=== PATIENT | female | born 1960 | race Caucasian/White ===

== ENCOUNTER → 2016-06-29 | Outpatient (CLI) | payer OTHER ==
[~2016-06-29] MED LIST: ALPRAZOLAM0.5 MG PO; COLACE PO; HYDROCHLOROTHIA25 MG PO; PERCOCET 7.5-31 EACH PO; PRILOSEC PO; VICODIN ES 7.51 EAC1 PO; XARELTO10 MG PO; ZOFRAN PO
--- NOTE | ~2016-06-29 | EKG ---
PATIENT: JOSE GUADALUPE ULLOA UNIT #: [id number] Ventricular Rate: 56 BPM Atrial Rate: 56 BPM P-R Interval: 162 ms QRS Duration: 94 ms Q-T Interval: 448 ms QTC Calculation(Bezet): 432 ms P [place]: 15 degrees Calculated R [place]: 7 degrees Calculated T [place]: 19 degrees Diagnosis Line: Sinus bradycardia Diagnosis Line: Otherwise normal ECG Diagnosis Line: No previous ECGs available Diagnosis Line: Confirmed by LYNDSAY NASCIMENTO MD ([id number]) on 06/30/2016 Diagnosis Line: 6:11:01 AM INTERPRETING MD: PILY COLLINS
[2016-06-29 12:57] LABS: CALCIUM SERUM 9.7 mg/dL (8.4-10.2); CREATININE SERUM 0.8 mg/dL (0.6-1.4); GLOM FILT RATE Estimated 82.5 mL/min (>60); POTASSIUM 4.3 mmol/L (3.5-5.1)
== END | disposition home or self-care (01) ==
LOC: CAMB 10:33
PROVIDERS: Orthopaedic Surgery
DX: Z01.818 Encounter for other preprocedural examination (principal); S86.811A Strain of other muscle(s) and tendon(s) at lower leg level, right leg, initial encounter; M20.11 Hallux valgus (acquired), right foot
CPT/HCPCS: 36415; 80048; 93005

== ENCOUNTER 2016-07-11 05:14 | Inpatient (IN) | payer OTHER ==
--- NOTE | ~2016-07-11 | DS ---
Unit #: [id number] #: [id number] Patient: JOSE GUADALUPE ULLOA [id number] [address] [place], [place] [address] [id number] I MR#: [id number] NAME: JOSE GUADALUPE ULLOA ROOM: 452 Age: 56 Sex: F Admission Date: 07/11/2016 : 1960 Discharge Date: 07/13/2016 Attending Physician: Megan Carbajal M.D. Referring Physician: Megan Carbajal M.D. Primary Care Physician: Generic Doctor Not In System DISCHARGE SUMMARY CHIEF COMPLAINT Right foot pain and deformity. HISTORY OF PRESENT ILLNESS The patient is a 56-year-old female with stage-3 right posterior tibial tendon dysfunction with associated painful flat-foot. She also has a severe right hallux valgus associated with hypermobility of the first ray. She has extensive metatarsus adductus. The patient is, therefore, to undergo right foot triple arthrodesis and a Lapidus bunionectomy. She has failed conservative care. HOSPITAL COURSE The patient was taken to the operating room on the date of admission where she underwent right foot triple arthrodesis, proximal tibial bone graft, Lapidus bunionectomy. The patient had a stable postoperative course and remained afebrile with stable vital signs. She was seen by Physical Therapy on a daily basis and instructed on how to remain non-weightbearing on her affected site. Pain was controlled with Percocet and morphine FRATERNITY ADVISER. She was ready for discharge on the 2nd postoperative day. FINAL DIAGNOSIS Stage-3 right posterior tibial tendon dysfunction and severe hallux valgus. DISPOSITION AND RECOMMENDATIONS 1. The patient is discharged home. She will keep the dressing clean, dry and intact. She will continue ice and elevation. She will be strictly non-weightbearing for 3 months. 2. Discharge medications remain the same as her home medications with the addition of Xarelto 10 mg p.o. daily for a total of 2 weeks, and Percocet 7.5/325 one or two p.o. q.6 hours p.r.n. pain, dispense 50. 3. Follow up in my office in 10-14 days for dressing change, stitch removal, application of a cast. Dictated by.Liberty Carbajal M.D. [facility]/jules TD: 07/13/2016 23:06 JOB #: [id number] Unit #: [id number] #: [id number] Patient: JOSE GUADALUPE ULLOA Bernard DISCHARGE SUMMARY Page 1 of 1 X Michelle Carbajal MD X DISCHARGE SUMMARY
--- NOTE | ~2016-07-11 | HP ---
Unit #: [id number] #: [id number] Patient: JOSE GUADALUPE ULLOA [id number] [facility]. [place], [place] [address] [id number] O MR#: [id number] NAME: JOSE GUADALUPE ULLOA ROOM: Age: Sex: F Admission Date: 07/11/2016 : 1960 Attending Physician: Megan Carbajal M.D. Referring Physician: Megan Carbajal M.D. Primary Care Physician: Generic Doctor Not In System HISTORY AND PHYSICAL CHIEF COMPLAINT Right foot pain and deformity. HISTORY OF PRESENT ILLNESS The patient is a 56-year-old female with worsening right flatfoot deformity secondary to stage III posterior tibial tendon dysfunction with equinus deformity. She also has severe right hallux valgus associated with hypermobility of the first ray. She has failed conservative care with the use of an Berenice brace and has pain with activities of daily living. She is therefore to undergo surgical correction. PAST MEDICAL HISTORY Past medical history is remarkable for gastroesophageal reflux disease, osteoporosis, arthritis and allergic rhinitis. HOME MEDICATIONS Xanax, hydrochlorothiazide and hydrocodone. ALLERGIES None. PAST SURGICAL HISTORY Cholecystectomy, hysterectomy, inguinal hernia repair, shoulder surgery. SOCIAL HISTORY The patient is a smoker. She denies alcohol use. FAMILY HISTORY Family history is remarkable for diabetes and arthritis. REVIEW OF SYSTEMS Review of systems is unremarkable. PHYSICAL EXAMINATION GENERAL: In general this is a well-developed, well-nourished female in no acute distress. HEENT: The pharynx is clear. NECK: The neck is supple, without masses. HEART: Exam reveals a regular sinus rhythm without murmurs or gallops. LUNGS: The lungs are clear. ABDOMEN: The abdomen is soft and nontender, without masses or organomegaly. EXTREMITIES: Evaluation of the right foot shows a significant pes planus deformity with 2 degrees of heel valgus. Right ankle dorsiflexion -10 Unit #: [id number] #: [id number] Patient: JOSE GUADALUPE ULLOA degrees, plantar flexion 40 degrees, subtalar motion is normal, first MTP joint motion is normal. The patient has a severe hallux valgus deformity. She is point tender over the sinus tarsi and over the posterior tibial tendon. She has absent inversion strength. She is unable to do a single heel rise. She exhibits a positive too many toes sign on the right which is abnormal. DIAGNOSTIC STUDIES IMAGING: Standing x-rays of the right ankle show no evidence of ankle valgus. Standing x-rays of the right foot show severe anterior subluxation of the talus of 15 mm. Meary angle is -18 degrees. Medial cuneiform height is -4 mm. Talonavicular joint coverage is 50%. Calcaneal pitch is 20 degrees. First and second intermetatarsal angle is 19 degrees and the hallux valgus angle is 43 degrees. Clinically the patient has hypermobility of the first ray. Pulses are intact and sensation is normal. ADMITTING DIAGNOSES 1. Right foot stage III posterior tibial tendon dysfunction with equinus deformity. 2. Severe right hallux valgus deformity with hypermobility of the first ray. PLAN The patient has failed conservative care. She will therefore undergo surgical correction. This will entail right foot triple arthrodesis with proximal tibial bone graft, percutaneous Achilles tendon lengthening, and Lapidus bunionectomy utilizing a plate. This procedure was described in detail along with risks of bleeding, infection, nerve damage, need for further surgery in the future, nonunion, malunion, prolonged recovery time, deep venous thrombosis, pulmonary embolism and anesthetic complication. The patient is advised that smoking increases her nonunion rate and she understands the importance of not smoking postoperatively. She understands she will be nonweightbearing three months postoperatively. Dictated by Velma Vaughan/jaquelin TD: 07/10/2016 20:40 JOB #: [id number] Unit #: [id number] #: [id number] Patient: JOSE GUADALUPE ULLOA HISTORY AND PHYSICAL Page 1 of 1 X Michelle Carbajal MD HISTORY AND PHYSICAL
--- NOTE | ~2016-07-11 | OR ---
Unit #: [id number] #: [id number] Patient: JOSE GUADALUPE ULLOA [id number] [address] [place], [place] [address] [id number] MR#: [id number] NAME: JOSE GUADALUPE ULLOA. ROOM: 452 Date of Procedure: 07/11/2016 Admission Date: 07/11/2016 Surgeon: Megan Carbajal M.D. : 1960 Attending Physician: Megan Carbajal M.D. Referring Physician: Megan Carbajal M.D. Primary Care Physician: Generic Doctor Not In System OPERATIVE REPORT PREOPERATIVE DIAGNOSES 1. Stage III right posterior tibial tendon tear. 2. Right hallux valgus. POSTOPERATIVE DIAGNOSES 1. Stage III right posterior tibial tendon tear. 2. Right hallux valgus. PROCEDURES PERFORMED 1. Right foot triple arthrodesis (60236). 2. Right Lapidus bunionectomy (48696). 3. Right proximal tibial bone graft (38953). [employer]. ANESTHESIA Popliteal saphenous block and general. INDICATIONS FOR SURGERY The patient is a 56-year-old female with morbid obesity, and a severe right pes planovalgus deformity secondary to posterior tibial tendon rupture. She has stiffness of her subtalar joints with marked subluxation of her subtalar and talonavicular joints. Additionally, she has metatarsus adductus and significant hallux valgus deformity with first metatarsal varus. The patient has failed conservative care and is therefore to undergo surgical correction. DESCRIPTION OF PROCEDURE The patient was taken to the operating room following popliteal saphenous block to the right leg. She was placed in supine position. General anesthetic was induced and the right leg was prepped and draped in usual sterile fashion. A time-out was performed identifying the right leg as the correct operative extremity. The IV antibiotic protocol was followed. A dorsal lateral longitudinal incision was made over the sinus tarsi extending down to the fourth metatarsal base. Subcutaneous tissue was carefully divided. The subtalar joint was exposed through the sinus tarsi. The contents of the sinus tarsi were excised. A laminar gas and oil checker was placed. The power osteotome, curved curettes, and rongeurs were utilized to remove the articular cartilage from both sides of the subtalar joint. The underlying subchondral bone was feathered with the power Unit #: [id number] #: [id number] Patient: JOSE GUADALUPE ULLOA osteotome. The calcaneocuboid joint was then exposed subperiosteally. The power osteotome, curved curettes, and rongeurs were utilized to remove the articular cartilage from both sides of the calcaneocuboid joint. The underlying subchondral bone was feathered with the power osteotome. A 6 cm incision was then made over the dorsal medial aspect of the talonavicular joint. The subcutaneous tissue was carefully divided. The joint was exposed subperiosteally. Baby Hohmann retractors were placed. The joint was distracted with a laminar gas and oil checker. The power osteotome, curved curettes, and rongeurs were utilized to remove the articular cartilage from both sides of the talonavicular joint. A curvilinear incision was then made over the proximal lateral tibia. The subcutaneous tissue was divided. The extensor fascia was opened. The lateral proximal tibial cortex was exposed subperiosteally. A 1 x 2 cm cortical window was then made with the power osteotome. The window was removed and saved to be replaced later in the case. A large amount of cancellous bone was then harvested with the curved curette and packed into all 3 joints. The proximal tibial defect was backfilled with allograft cancellous bone chips and the cortical window was replaced. The extensor fascia was closed with 2-0 Vicryl [id number]-[id number] sutures. The subtalar joint was then reduced with the laminar gas and oil checker by spreading the distance between the anterior calcaneal process and the lateral talar process. The subtalar joint was fixated with two 6.7 mm diameter cannulated screws (Arthrex) placed from the posterior inferior heel into the talar body and neck. Excellent fixation was achieved. An intraoperative mini C-arm fluoroscopy documented satisfactory reduction of the subtalar joint. The talonavicular joint was then reduced by pronating the foot and the talonavicular joint was fixated with two Arthrex 4.5 mm diameter cannulated screws placed from distal to proximal. The calcaneocuboid joint was fixated with one 4.5 mm diameter cancellous screw placed from distal to proximal. Intraoperative C-arm fluoroscopy documented satisfactory reduction of all three joints. The medial incision was then carried longitudinally along the medial aspect of the first metatarsal and across the first metatarsophalangeal joint. Subcutaneous tissue was carefully divided. The first metatarsophalangeal joint capsule was opened longitudinally and reflected off the first metatarsal head. The microsagittal saw was used to remove the prominent medial eminence just medial to the sagittal sulcus. A lateral release was performed through the plantar aspect of the joint releasing the lateral edge of the fibular sesamoid and performing a lateral capsular release. The microsagittal saw was then used to remove the articular cartilage from both sides of the first tarsometatarsal joint. The underlying subchondral bone was feathered with the power osteotome. The first tarsometatarsal joint was then reduced by plantar flexing and pushing the first metatarsal head laterally against the second metatarsal. The first tarsometatarsal joint was then provisionally fixated with two crossed K-wires. The Arthrex plantar Lapidus plate was then applied plantarly and two screws were placed distally. The compression screw was then placed through the plate from plantar to dorsal. Excellent fixation was achieved. Two additional screws were placed in the proximal portion of the plate. Unit #: [id number] #: [id number] Patient: JOSE GUADALUPE ULLOA The excess medial joint capsule was then excised at the first metatarsophalangeal joint level. The joint capsule was then imbricated with multiple 2-0 Vicryl [id number] sutures. Intraoperative C-arm fluoroscopy documented satisfactory plate position and first metatarsophalangeal joint position. All wounds were copiously irrigated. Tourniquet was released with a total tourniquet time of 2 hours 15 minutes. The subcutaneous tissue was closed with 2-0 and 3-0 Vicryl sutures. The skin was closed with 3-0 nylon horizontal mattress sutures. The foot could be dorsiflexed to above 0 degrees ankle dorsiflexion, therefore an Achilles release was not required. Xeroform gauze, dressing, sponges, Webril, and a posterior fiberglass splint were applied. The patient was then transported to the recovery room in stable condition. ESTIMATED BLOOD LOSS 100 mL. COMPLICATIONS None. SPECIMENS None. TOURNIQUET TIME 2 hours 15 minutes. Dictated byVelma Pinedo/danny TD: 07/12/2016 02:30 JOB #: [id number] OPERATIVE REPORT Page 1 of 1 X Michelle Carbajal MD PROCEDURE OPERATIVE NOTE
[~2016-07-11 05:14] MED LIST changes: -COLACE PO; -PERCOCET 7.5-31 EACH PO; -XARELTO10 MG PO; -ZOFRAN PO
[2016-07-12 03:26] LABS: HEMATOCRIT 37.9 % (35.0-45.0); HEMOGLOBIN 12.6 gm/dL (12.0-16.0)
[2016-07-13] MEDS ORDERED: XARELTO10 MG PO (14:17)
[2016-07-13] MEDS ORDERED: COLACE PO (14:18)
[2016-07-13] MEDS ORDERED: PERCOCET 7.5-31 EACH PO (14:19)
[2016-07-13] MEDS ORDERED: ZOFRAN PO (15:35)
== END 2016-07-13 17:03 | disposition home or self-care (01) | DRG 494 ==
LOC: CSUR 05:14 → CPACUOF 10:32 → C4B 12:25
PROVIDERS: Orthopaedic Surgery
PROC: 0SGH04Z Fusion of Right Tarsal Joint with Internal Fixation Device, Open Approach (ICD-10-PCS; 2016-07-11)
PROC: 0SGH04Z Fusion of Right Tarsal Joint with Internal Fixation Device, Open Approach (ICD-10-PCS; 2016-07-11)
PROC: 0SGH07Z Fusion of Right Tarsal Joint with Autologous Tissue Substitute, Open Approach (ICD-10-PCS; 2016-07-11)
PROC: 0SGH07Z Fusion of Right Tarsal Joint with Autologous Tissue Substitute, Open Approach (ICD-10-PCS; 2016-07-11)
PROC: 0SGH07Z Fusion of Right Tarsal Joint with Autologous Tissue Substitute, Open Approach (ICD-10-PCS; 2016-07-11)
PROC: 0SGH04Z Fusion of Right Tarsal Joint with Internal Fixation Device, Open Approach (ICD-10-PCS; principal; 2016-07-11 07:30)
PROC: 0QBG0ZZ Excision of Right Tibia, Open Approach (ICD-10-PCS; 2016-07-11 07:30)
PROC: 0QSN04Z Reposition Right Metatarsal with Internal Fixation Device, Open Approach (ICD-10-PCS; 2016-07-11 07:30)
DX: M21.071 Valgus deformity, not elsewhere classified, right ankle (principal); E66.01 Morbid (severe) obesity due to excess calories; S96.811A Strain of other specified muscles and tendons at ankle and foot level, right foot, initial encounter; X58.XXXA Exposure to other specified factors, initial encounter; M20.11 Hallux valgus (acquired), right foot; F17.210 Nicotine dependence, cigarettes, uncomplicated; K21.9 Gastro-esophageal reflux disease without esophagitis; M81.0 Age-related osteoporosis without current pathological fracture; M19.90 Unspecified osteoarthritis, unspecified site; Z68.38 Body mass index [BMI] 38.0-38.9, adult; S86.111A Strain of other muscle(s) and tendon(s) of posterior muscle group at lower leg level, right leg, initial encounter
CPT/HCPCS: 85014; 85018; 94760; 97116; 97162; 97530; C1713; J0330; J0690; J0735; J2250; J2270; J2405; J2710; J2795; J3010